=== PATIENT | male | born 1960 | race Caucasian/White ===

== ENCOUNTER 2022-05-28 00:21 | Day surgery (SDC) | payer MEDICARE, SELFPAY ==
[2022-05-12 09:04] VITALS: BMI 27.6
--- NOTE | 2022-05-27 14:04 | PM.HPGS ---
History of Present Illness History of Present Illness Consent: Risks, benefits, and alternatives have been discussed and questions answered. Patient agrees to proceed with procedure. Chief complaint: neoplasm screening Narrative: Danny العراقي is a 62 year old male referred for colon cancer screening. He has a history of polyps. Review of Systems Review of Systems: All systems reviewed & are unremarkable except as noted in HPI and below PMFSH Family History Family History Father Cerebrovascular accident Family history of diabetes mellitus in first degree relative Family history of lung cancer Family history of lung disease Patient's father is Mother Family history of arthritis Social History Social History Smoking status: Never smoker Second hand tobacco smoke exposure: No Alcohol intake: never Substance use: current Substance use type: marijuana Last use: 3X weekly Living arrangements: with family Spiritual care concerns: No Meds Home Medications and Allergies Home Medications Medication Instructions Recorded Confirmed Type atorvastatin 20 mg tablet 20 mg PO DAILY 05/12/22 05/12/22 History hydrocodone 10 mg-acetaminophen 1 tablet PO BID PRN Pain 05/12/22 05/12/22 History 325 mg tablet insulin glargine 100 unit/mL 40 unit subcut HS 05/12/22 05/12/22 History subcutaneous cartridge insulin lispro 100 unit/mL 5 - 10 unit subcut TID PRN 05/12/22 05/12/22 History subcutaneous cartridge (Humalog Hyperglycemia U-100 Insulin) lisinopril 40 mg tablet 40 mg PO DAILY 05/12/22 05/12/22 History triamcinolone acetonide 0.1 % 1 applic topical BID PRN Rash 05/12/22 05/12/22 History topical ointment Allergies Allergy/AdvReac Type Severity Reaction Status Date / Time No Known Allergies Allergy Mild Verified 05/12/22 09:03 Exam Const: General: alert Orientation/consciousness: patient oriented x3 Resp: Auscultation: clear to auscultation bilaterally Cardio: Rhythm: regular rhythm GI: GI Palp: Yes Soft to palpation and No Tenderness to palpation present (GI) Neuro: General: patient oriented x3 Assessment and Plan Assessment and plan (1) Colon cancer screening: Code(s): Z12.11 - Encounter for screening for malignant neoplasm of colon Status: Acute Assessment and Plan: Colonoscopy with possible biopsy or polypectomy or cautery or injection of substances.
[2022-05-28 06:15] VITALS: BP 178/66; PULSE 78; RESP 18; TEMP 37.1; O2SAT 99; BMI 26.0
[2022-05-28 06:33] LABS: Glucose Point of Care 177 mg/dl (65-105)
[2022-05-28] MEDS: LACTATED RINGERS 1,000 ML 150 ML IV CONT (06:38)
--- NOTE | 2022-05-28 07:19 | WPDANESEPPF ---
Anes - Initial Pre Proc Eval Procedure: Operation Date: 05/28/22 07:30 Proposed Procedures p Screening Colonoscopy - Dean Gonzales MD Date/Time: 05/28/22 07:19 Surgeon: Dean Gonzales MD Pre Op Diagnosis: neoplasm screening Patient Data Age: 62 Gender: M Height: 1.73 m Weight: 77.7 kg Last Vital Signs Temp 98.7 F 05/28/22 06:15 Pulse 78 05/28/22 06:15 Resp 18 05/28/22 06:15 BP 178/66 H 05/28/22 06:15 Pulse Ox 99 05/28/22 06:15 O2 Del Method Room Air 05/28/22 06:15 Allergies Allergy/AdvReac Type Severity Reaction Status Date / Time No Known Allergies Allergy Mild Verified 05/12/22 09:03 Home Medications Medication Instructions Recorded Confirmed Type atorvastatin 20 mg tablet 20 mg PO DAILY 05/12/22 05/12/22 History hydrocodone 10 mg-acetaminophen 1 tablet PO BID PRN Pain 05/12/22 05/12/22 History 325 mg tablet insulin glargine 100 unit/mL 40 unit subcut HS 05/12/22 05/12/22 History subcutaneous cartridge insulin lispro 100 unit/mL 5 - 10 unit subcut TID PRN 05/12/22 05/12/22 History subcutaneous cartridge (Humalog Hyperglycemia U-100 Insulin) lisinopril 40 mg tablet 40 mg PO DAILY 05/12/22 05/12/22 History triamcinolone acetonide 0.1 % 1 applic topical BID PRN Rash 05/12/22 05/12/22 History topical ointment Laboratory Tests 05/28/22 06:31 POC Capillary Glucose 177 mg/dl H mg/dl (65-105) Patient hx anesthesia problems: none Family hx anesthesia problems: none Results Review: All pre-operative results and documents have been reviewed as part of the pre-operative evaluation. [facility] Family History Family History (Updated 10/26/15 @ 23:19 by DOCTOR UNKNOWN) Father Cerebrovascular accident Family history of diabetes mellitus in first degree relative Family history of lung cancer Family history of lung disease Patient's father is Mother Family history of arthritis Social History Social History Smoking status: Never smoker Second hand tobacco smoke exposure: No Alcohol intake: never Substance use: current Substance use type: marijuana Last use: 3X weekly Living arrangements: with family Spiritual care concerns: No Anes - Eval Final PreProcedure Day of Procedure 05/28/22 07:19 Patient weight: normal Heart: regular rate and rhythm Lungs: clear to auscultation Airway: Mallampati scale class II Neurological: alert and oriented Last oral intake: >/= 8 hours ASA classification: III Emergent: no Anesthetic plan: proceed Anesthesia type and monitoring: general GIVS and standard monitoring Results Review: All pre-operative results and documents have been reviewed as part of the pre-operative evaluation. Informed Consent: The patient's anesthetic plan and its attendant risks and benefits were discussed with the patient/family/POA. Questions were solicited and answers provided to the satisfaction of the patient/family/POA.
[2022-05-28 07:48] VITALS: BP 133/60; PULSE 74; RESP 21; O2SAT 100
[2022-05-28 07:57] LABS: Glucose Point of Care 151 mg/dl (65-105)
[2022-05-28 07:58] VITALS: BP 145/73; PULSE 69; RESP 19; O2SAT 100
[2022-05-28 08:08] VITALS: BP 157/70; PULSE 67; RESP 20; O2SAT 100
== END 2022-05-28 08:21 | disposition home or self-care (01) ==
PROVIDERS: PCP Internal Medicine; Visit Provider Internal Medicine Gastroenterology
PROC: 0DJD8ZZ Inspection of Lower Intestinal Tract, Via Natural or Artificial Opening Endoscopic (ICD-10-PCS; CPT 45378; principal; 2022-05-28 07:30)
DX: Z12.11 Encounter for screening for malignant neoplasm of colon (principal); D12.3 Benign neoplasm of transverse colon; D12.4 Benign neoplasm of descending colon; K64.8 Other hemorrhoids; Z79.4 Long term (current) use of insulin; Z79.891 Long term (current) use of opiate analgesic; F12.90 Cannabis use, unspecified, uncomplicated
CPT/HCPCS: 45385; 82948; 88305; J2704; J7120

== ENCOUNTER 2023-12-08 14:55 | Outpatient (RCR) | payer MEDICARE, SELFPAY | END 2024-02-29 11:01 | disposition home or self-care (01) | LOC: ANHDMC 14:55 | PROVIDERS: PCP Internal Medicine; Visit Provider Internal Medicine Endocrinology, Diabetes & Metabolism | DX: E11.9 Type 2 diabetes mellitus without complications (principal); Z71.89 Other specified counseling | CPT/HCPCS: G0108 ==

== ENCOUNTER 2024-10-31 09:54 | Emergency (ER) | payer MEDICARE, SELFPAY ==
--- NOTE | ~2024-10-31 | CT_ITS ---
EXAMINATION: CT abdomen pelvis w con DATE: 10/31/2024 13:12 INDICATION: GI bleed TECHNIQUE: Computed tomography (CT) of the abdomen and pelvis was performed with 100 cc Omnipaque 350 intravenous contrast. The dose-length product was 498.52 mGy-cm. Automated exposure control and iter ative reconstruction technique were employed. COMPARISON: None. FINDINGS: Small hiatal hernia. No significant pleural or pericardial effusion. Fatty infiltration of the liver. The spleen, pancreas, adrenal glands and kidneys are unremarkable. There is atherosclerosi s of the aorta without evidence for aneurysm. Gallbladder is present. No lymphadenopathy. Mildly thic kened small bowel loops with air-fluid levels without significant dilation, suspicious for enteritis. No definite obstruction. Normal appendix. IMPRESSION: 1. Mildly thickened small bowel loops with air-fluid levels in the left upper abdomen without definit e obstruction, suspicious for enteritis. Reviewed, dictated and finalized at location A. IMPRESSION: 1. Mildly thickened small bowel loops with air-fluid levels in the left upper a bdomen without definite obstruction, suspicious for enteritis.
[2024-10-31 09:56] VITALS: BP 171/56; PULSE 70; RESP 18; TEMP 36.4; O2SAT 100
[2024-10-31 11:38] VITALS: BP 157/89; PULSE 63; RESP 16; O2SAT 98
--- NOTE | 2024-10-31 11:46 | ED.GIBLEED ---
HPI - GI Bleed General Chief complaint: GI Bleed Stated complaint: bloody bowel movement Time Seen by Provider: 10/31/24 11:27 Source: patient and RN notes reviewed Mode of arrival: ambulatory Limitations: no limitations History of Present Illness HPI Narrative: 64-year-old male presents to the ER complaining of bright red blood in his stool starting this morning. Patient said he has a history of hemorrhoids said this morning he was having a bowel movement he noticed bright red blood in the toilet and after he wiped. Patient denies any black or tarry stools. Patient has not any other blood in his stool since the pelvis at this morning. Patient denies any fevers, chills, body aches, nausea, vomiting, changes in bowel habits, diarrhea, abdominal pain, or vomiting blood. Patient says he has a history of radiation poisoning, hypertension, diabetes. Patient recently had a colonoscopy approximately 6 months ago was told he has hemorrhoids otherwise unremarkable. Patient does not take any blood thinners. Related Data Home Medications ?Medication ?Instructions ?Recorded ?Confirmed ?Last Taken ?Type atorvastatin 20 mg tablet 20 mg PO DAILY 05/12/22 08/18/24 Unknown History hydrocodone 10 mg-acetaminophen 1 tablet PO BID PRN Pain 05/12/22 08/18/24 Unknown History 325 mg tablet lisinopril 40 mg tablet 40 mg PO DAILY 05/12/22 08/18/24 Unknown History triamcinolone acetonide 0.1 % 1 applic topical BID PRN Rash 05/12/22 08/18/24 Unknown History topical ointment Allergies Allergy/AdvReac Type Severity Reaction Status Date / Time No Known Allergies Allergy Mild Verified 10/31/24 09:54 Review of Systems Review of Systems: CONSTITUTIONAL: Denies fever, chills, or sweats. EYES: Denies visual changes, redness, or discharge. ENT: Denies rhinorrhea, congestion, sore throat, or otalgia. CARDIOVASCULAR: Denies chest pain, palpitations, or edema. RESPIRATORY: Denies cough or dyspnea. GASTROINTESTINAL: Denies abdominal pain, nausea, vomiting, black tarry stools, vomiting blood, or diarrhea. Positive for bright red blood in stool. GENITOURINARY: Denies dysuria or hematuria. SKIN: Denies rash or itching. MUSCULOSKELETAL: Denies back pain, joint pain, or myalgia. NEUROLOGIC: Denies headache, numbness, or weakness. PSYCHIATRIC: Denies anxiety or depression. All other systems reviewed are negative, except as documented in HPI. [facility] Past Medical History Medical History Hyperlipidemia Diabetes Family History Family History Father Cerebrovascular accident Family history of diabetes mellitus in first degree relative Family history of lung cancer Family history of lung disease Patient's father is Mother Family history of arthritis Social History Social History Smoking status: Never smoker Second hand tobacco smoke exposure: No Alcohol intake: never Substance use: current Substance use type: marijuana Last use: 3X weekly Do You Feel Safe in your Home?: Yes Lack of Transportation: YES Lack of Food: Sometimes True Current Housing: I Have Housing Concerned About Future Housing: No Difficulty Paying Gas/Electric Bills: YES Difficulty Paying for Meds: YES Currently Unemployed: No Education: High School Diploma/GED Difficulty w/ Childcare or Family Care: No Living arrangements: with family Spiritual care concerns: No Comments At the time of my signature, I reviewed and agree with the nursing past medical, surgical, social, and family history. There is no relevant family history pertinent to the patient complaint. Exam Narrative: GENERAL: This is a well-nourished, well-developed adult, in no apparent distress. They are non ill-appearing, nontoxic appearing. HEAD: normocephalic, atraumatic. EYES: Sclera clear/white. Conjunctiva normal. Vision is grossly intact. Extraocular movements intact EARS: External ears normal, Hearing grossly intact. NOSE: External nose normal THROAT: Mucous membranes moist,. NECK: Neck supple, non-tender without lymphadenopathy, masses or thyromegaly. CARDIOVASCULAR: Regular rate and rhythm without murmurs, gallops, or rubs. RESPIRATORY: Clear to auscultation. Breath sounds equal bilaterally. No wheezes, rales, or rhonchi. GASTROINTESTINAL: Abdomen soft, non-tender, nondistended. Bowel sounds are active. No hepato-splenomegaly, or palpable masses. No guarding. External hemorrhoid present. Internal hemorrhoid present. SKIN: warm, Dry, intact with no suspicious lesions or rash, good texture and turgor. NEURO: awake, alert, and oriented to person, place and time. There were no obvious focal neurologic abnormalities. EXTREMITIES: No joint tenderness, effusion, or edema noted. Course Course Emergency Course: Portions of this record may have been created with voice recognition software Vital Signs Vital signs: Vital Signs Temperature 97.5 F L 10/31/24 09:56 Pulse Rate 70 10/31/24 09:56 Respiratory Rate 18 10/31/24 09:56 Blood Pressure 171/56 H 10/31/24 09:56 Pulse Oximetry 100 10/31/24 09:56 Oxygen Delivery Room Air 10/31/24 09:56 Temperature 97.5 F L 10/31/24 09:56 Pulse Rate 61 10/31/24 13:25 Respiratory Rate 18 10/31/24 13:25 Blood Pressure 163/90 H 10/31/24 13:25 Pulse Oximetry 99 10/31/24 13:25 Oxygen Delivery Room Air 10/31/24 09:56 Reviewed MDM - GI Bleed MDM Narrative Medical decision making narrative: Positive guaiac could be related from a ruptured hemorrhoid. Hemorrhoid palpated on rectal exam. Tisha RN with [employer]ol teacher assistant present in room during exam. Will obtain lab work and imaging to assess for other causes of GI bleed. No peritoneal findings, patient denies any abdominal pain, nausea vomiting, diarrhea, or any black tarry stools. Lab work grossly unremarkable, no leukocytosis, hemoglobin stable, no evidence of infection, chemistry normal. CT abdomen pelvis showed possible enteritis, no evidence of small-bowel obstruction any other acute findings. Patient currently asymptomatic. No other episodes of bloody stools. Patient is appropriate for outpatient follow-up with PCP and GI. Patient says he had a normal colonoscopy within the last 6 months. Strict ER precautions discussed specific becomes dizzy, lightheaded, uncontrollable bloody stools, black tarry stools, abdominal pain, fevers, nausea ,vomiting, or any serious concerns. Discussed physical exam findings. Advised supportive measures and signs/symptoms to go to the ER. Pt is appropriate for outpt treatment and f/u. Differential Diagnosis Differential diagnosis: Likely hemorrhoids, Upper gastrointestinal hemorrhage, Lower gastrointestinal hemorrhage, melena and anal fissure Lab Data Attestation: I reviewed the patient's lab results. 10/31/24 11:49 08/04/25 11:49 Labs: Lab Results 10/31/24 Range/Units 11:49 WBC 5.2 (4.5-10.0) K/mm3 RBC 4.76 (4.6-6.20) M/mm3 Hgb 13.6 L (14.0-18.0) g/dL Hct 40.3 L (42.0-52.0) % MCV 84.7 (80-100) fl MCH 28.6 (26-34) pg MCHC 33.7 (32-36) g/dl RDW 13.0 (11.5-14.5) % Plt Count 210 (150-375) k/mm3 MPV 10.4 (7.4-10.4) fl Immature Gran % (Auto) 0.2 (0-0.5) % Neut % (Auto) 68.1 (45.5-73.1) % Lymph % (Auto) 24.9 (18.3-44.2) % Spink % (Auto) 5.2 (2.6-8.5) % Eos % (Auto) 0.8 (0-4.4) % Baso % (Auto) 0.8 (0.2-1.2) % Lymph # (Auto) 1.28 (0.9-3.2) K/mm3 Spink # (Auto) 0.3 (0.1-0.6) K/mm3 Eos # (Auto) 0.0 (0-0.3) K/mm3 Baso # (Auto) 0.0 (0.0-0.1) K/mm3 Abs Immat Gran (auto) 0.01 (0.00-0.031) K/mm3 Absolute Neuts (auto) 3.5 (1.3-6.7) K/mm3 Absolute Nucleated RBC 0.000 (0.0-0.012) K/mm3 Nucleated RBC % 0.0 (0.0-0.2) % PT 13.5 (11.1-14.7) Seconds INR 1.0 APTT 32.1 (22.3-36.8) Seconds Sodium 138 (137-145) mmol/L Potassium 4.8 (3.4-5.0) mmol/L Chloride 106 (98-107) mmol/L Carbon Dioxide 25 (22-30) mmol/L Anion Gap 7 (4-12) mmol/L BUN 14 (9-20) mg/dL Creatinine 0.97 (0.7-1.3) mg/dL Estim Creat Clear Calc 60 ml/min Estimated GFR > 60 (59 - ) Glucose 160 H (65-110) mg/dL Calcium 9.6 (8.4-10.2) mg/dL Total Bilirubin 0.5 (0.2-1.3) mg/dL AST 24 (17-59) U/L ALT 25 (6-50) U/L Alkaline Phosphatase 57 (38-126) U/L Total Protein 7.6 (6.3-8.2) g/dL Albumin 4.5 (3.5-5.1) g/dL Blood Type A Positive Antibody Screen Negative Imaging Data Radiologist's impression: ITS Impressions Abdomen/Pelvis CT 10/31/24 13:18 IMPRESSION: 1. Mildly thickened small bowel loops with air-fluid levels in the left upper abdomen without definite obstruction, suspicious for enteritis. Critical Care Time Critical Care Time Critical Care Time: No Discharge Plan Discharge Clinical Impression: Hemorrhoids Patient Disposition: Home Condition: Stable Instructions: Gastrointestinal Bleeding (ED), Hemorrhoids (ED) Additional Instructions: Your lab work is normal, CT did show possible enteritis. Drink plenty of fluids. Avoid spicy or fried foods. Eat bland foods or foods easy on your stomach and progress back to normal diet. Follow-up PCP in 3-5 days, follow-up with GI in 3-5 days as well for further evaluation. Please return to the ER if he developed black tarry stools, uncontrollable GI bleeding, dizziness, lightheadedness, fevers, abdominal pain, nausea vomiting, vomiting blood, or any serious concerns. Patient Language: Vietnamese Prescriptions: No Action Baqsimi 3 mg/actuation spray,non-aerosol 3 mg intranasal ONCE Qty: 2 0RF Rx Instructions: as a single dose Gvoke HypoPen 2-Pack 1 mg/0.2 mL auto-injector 1 mg subcut ONCE Qty: 0.4 0RF Rx Instructions: as a single dose; may repeat once after 15 minutes if no response atorvastatin 20 mg Tablet 20 mg PO DAILY hydrocodone-acetaminophen 10-325 mg Tablet 1 tablet PO BID PRN (Reason: Pain) triamcinolone acetonide 0.1 % Ointment 1 applic TOPICAL BID PRN (Reason: Rash) lisinopril 40 mg Tablet 40 mg PO DAILY (DME) pen needle, diabetic [Sure-Fine Pen [place]] 29 gauge x 1/2 needle See Rx Instructions .Route Qty: 400 1RF Rx Instructions: Use with insulin administration 4 times a day insulin glargine [Lantus Solostar U-100 Insulin] 100 unit/mL (3 mL) insulin pen 14 unit subcut BID 90 Days Qty: 45 1RF Rx Instructions: 14 units in the morning and 14 units in the evening insulin aspart U-100 [Novolog FlexPen U-100 Insulin] 100 unit/mL (3 mL) insulin pen 6 unit subcut TID MDD 30 Qty: 21 1RF Rx Instructions: 6 units plus sliding scale cholecalciferol (vitamin D3) 1,250 mcg (50,000 unit) capsule 1,250 mcg PO WEEKLY Qty: 12 0RF Follow-up/Referrals: Juan Carlos,MD Papo [Primary Care Provider] - Ad Davis MD [Physician] - Time of Disposition: 13:47
[2024-10-31 12:00] LABS: Hematocrit 40.3 % (42.0-52.0); Hemoglobin 13.6 g/dL (14.0-18.0); Immature Granulocyte Percent A 0.2 % (0-0.5); Lymphocytes Absolute Auto 1.28 K/mm3 (0.9-3.2); Mean Corpuscular HGB Conc 33.7 g/dl (32-36); Mean Corpuscular Hemoglobin 28.6 pg (26-34); Mean Corpuscular Volume 84.7 fl (80-100); Nucleated Red Blood Cells Absolute Auto 0.000 K/mm3 (0.0-0.012); Nucleated Red Blood Cells Perc 0.0 % (0.0-0.2); Platelet Count Result 210 k/mm3 (150-375); Red Blood Count 4.76 M/mm3 (4.6-6.20); White Blood Count 5.2 K/mm3 (4.5-10.0)
[2024-10-31 12:19] LABS: Alanine Aminotransferase 25 U/L (6-50); Albumin Level 4.5 g/dL (3.5-5.1); Alkaline Phosphatase 57 U/L (38-126); Anion Gap 7 mmol/L (4-12); Aspartate Amino Transferase 24 U/L (17-59); Bilirubin,Total 0.5 mg/dL (0.2-1.3); Blood Urea Nitrogen 14 mg/dL (9-20); Calcium 9.6 mg/dL (8.4-10.2); Carbon Dioxide 25 mmol/L (22-30); Chloride 106 mmol/L (98-107); Estimated CRCL calculation 60 ml/min; Estimated Glomerular Filt Rate > 60; Glucose 160 mg/dL (65-110); Potassium 4.8 mmol/L (3.4-5.0); Sodium 138 mmol/L (137-145); Total Protein 7.6 g/dL (6.3-8.2)
[2024-10-31 12:31] LABS: INR 1.0; Prothrombin Time 13.5 Seconds (11.1-14.7)
[2024-10-31 12:32] LABS: Partial Thromboplastin Time 32.1 Seconds (22.3-36.8)
[2024-10-31 13:25] VITALS: BP 163/90; PULSE 61; RESP 18; O2SAT 99
== END 2024-10-31 13:56 | disposition home or self-care (01) ==
PROVIDERS: PCP Internal Medicine
DX: K64.8 Other hemorrhoids (principal); E78.5 Hyperlipidemia, unspecified; E11.9 Type 2 diabetes mellitus without complications
CPT/HCPCS: 36415; 74177; 80053; 85025; 85610; 85730; 86850; 86900; 86901; 99284; Q9967